=== PATIENT | male | born 1985 | race Caucasian/White ===

== ENCOUNTER 2021-12-19 09:35 | Emergency (ER) | payer OTHER, SELFPAY ==
[2021-12-19 10:14] VITALS: BP 115/68; PULSE 64; RESP 14; TEMP 36.1; O2SAT 99; BMI 21.7
--- NOTE | 2021-12-19 10:25 | CRLHL7_ITS ---
For Patients: As a result of the Cures Act, medical imaging exams and procedure reports are released immediately into your electronic medical record. You may view this report before your referring provider. If you have questions, please contact your health care provider. Indication: left arm injury, caught in machine Technique: Left forearm 2 views. Comparison: None. Findings: Bones: Alignment is normal. No fractures or bone lesions. Joint spaces: Unremarkable. Soft tissues: Unremarkable. Impression: Unremarkable left forearm. Dictated by Jose Armando Lora MD @ 12/19/2021 11:12:07 AM (Electronically Signed)
--- NOTE | 2021-12-19 11:00 | ED.GENADULT ---
HPI - General Adult General Chief complaint: Extremity Pain/Injury, Upper Stated complaint: WC/LEFT ARM CAUGHT IN MACHINERY Time Seen by Provider: 12/19/21 10:54 History of Present Illness HPI narrative: This 36-year-old male comes in with an injury to his left forearm. He was at work and got his arm caught into a machine. He has some superficial abrasions in the proximal forearm and has a laceration on the dorsal aspect of his left wrist. He is deaf and needs sign language interpretation for this encounter. He does not report any other injury. His tetanus is up-to-date. Related Data Home Medications Medication Instructions Recorded Confirmed multivitamin 1 tab PO DAILY 12/19/21 12/19/21 Allergies Allergy/AdvReac Type Severity Reaction Status Date / Time metals Allergy Mild Rash Uncoded 12/19/21 10:13 Review of Systems Status of ROS: Reports: 10 or more systems reviewed and unremarkable except as noted in History and below Narrative: Constitutional: No fevers, no weight gain or loss. Eyes: No discharge. No vision changes. HENT: No congestion, no sore throat, no ear pain. Cardiovascular: No chest pain, no palpitations. Respiratory: No shortness of breath, no wheezes, no cough. Gastrointestinal: No abdominal pain, no vomiting, no diarrhea. Genitourinary: No dysuria, no hematuria. Musculoskeletal: Normal range of motion. Injury to the left forearm as described above. Skin: No rashes, no pruritis. Neurological: No dizziness, weakness, sensory change, speech change. Endo/Heme/Allergies: No bruising or bleeding. No polydipsia. Pysch: no suicidality, no anxiety, no insomnia. All other systems reviewed and are negative. Const: Denies: fever or chills Eyes: Denies: change in vision Integ/Breast: Denies: rash or itching Neuro: Denies: headache, weakness in extremities or dizziness Psych: Denies: anxiety Endo: Denies: excessive urination or excessive thirst Alo/Lymph: Denies: easy bruising or easy bleeding Allergy/Immuno: Denies: hives Exam Narrative: Exam Narrative: Constitutional: Well-developed, well-nourished, no acute distress. HEENT: Normocephalic, atraumatic. Neck: Normal range of motion. Nontender. Supple. Heart: Intact distal pulses. Lungs: No chest discomfort. No wheezes, rhonchi, or rales. Abdomen: Nontender. Back: Normal range of motion. Extremities: Normal range of motion. 2 cm laceration on the dorsal aspect of the left wrist. There is some superficial bruising and erythema in the proximal left forearm. Skin: Intact. No rash. Warm. No erythema or pallor. Neurologic: No altered sensation. No weakness. Alert and oriented. Psychiatric: No suicidality. No anxiety or depression. No insomnia. Nursing notes and vitals signs are reviewed. Const: Vital Signs, click to edit/add: Vital Signs - 24 hr 12/19/21 10:14 Temperature 97.0 F L Pulse Rate [Right Pulse Oximeter] 64 Respiratory Rate 14 Blood Pressure [Ri ght Upper Arm] 115/68 Pulse Oximetry 99 Course Vital Signs Vital signs: Initial Vital Signs Temperature 97.0 F L 12/19/21 10:14 Temperature Source Temporal Artery Scan 12/19/21 10:14 Pulse Rate 64 12/19/21 10:14 Respiratory Rate 14 12/19/21 10:14 Blood Pressure 115/68 12/19/21 10:14 Blood Pressure Mean 83 12/19/21 10:14 Blood Pressure Position Sitting 12/19/21 10:14 Pulse Oximetry 99 12/19/21 10:14 Oxygen Delivery Method 12/19/21 10:14 Vital Signs Temperature 97.0 F L 12/19/21 10:14 Pulse Rate 64 12/19/21 10:14 Respiratory Rate 14 12/19/21 10:14 Blood Pressure 115/68 12/19/21 10:14 Pulse Oximetry 99 12/19/21 10:14 Temperature 97.0 F L 12/19/21 10:14 Pulse Rate 64 12/19/21 10:14 Respiratory Rate 14 12/19/21 10:14 Blood Pressure 115/68 12/19/21 10:14 Pulse Oximetry 99 12/19/21 10:14 Medical Decision Making MDM Narrative Medical decision making narrative: This patient comes in with an injury to his left arm while at work. 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 He has a 2 cm linear laceration on the dorsal aspect of his left wrist. I discussed repair options and the patient elected to have Dermabond applied. After cleansing the wound this was applied with excellent results. Instructions were given regarding wound care. Two Band-Aids were applied and then an Sav wrap. He is okay to return to work. Imaging Data x-ray forearm: My impression: No sign of fracture or dislocation. Radiologist's impression: No acute injury. Discharge Plan Discharge Clinical Impression: Arm laceration Patient Disposition: Home, Self-Care Condition: Stable Instructions: Laceration (ED) Additional Instructions: Left arm laceration. Keep wound clean and dry. Activity as tolerated. Follow up with MD or return if worsening. Prescriptions: No Action multivitamin Tablet 1 tab PO DAILY 0RF Follow Up/Referrals: Jose Armando Cervantes MD [Primary Care Provider] - Stand Alone Forms: [employer] Info Instructions
== END 2021-12-19 12:12 | disposition home or self-care (01) ==
PROVIDERS: Emergency Provider Emergency Medicine Emergency Medical Services; PCP Family Medicine
DX: S61.512A Laceration without foreign body of left wrist, initial encounter (principal); Y93.89 Activity, other specified; Y92.63 Factory as the place of occurrence of the external cause; Y99.0 Civilian activity done for income or pay
CPT/HCPCS: 12001; 73090; 99282; 99283

== ENCOUNTER 2022-12-13 10:02 | Outpatient (CLI) | payer BC, SELFPAY | END 2022-12-13 10:03 | disposition home or self-care (01) | PROVIDERS: PCP Family Medicine; Visit Provider Family Medicine | DX: Z00.00 Encounter for general adult medical examination without abnormal findings (principal); B36.0 Pityriasis versicolor; Z13.6 Encounter for screening for cardiovascular disorders | CPT/HCPCS: 80048; 80061; 84460 ==

== ENCOUNTER 2025-03-29 09:50 | Outpatient (CLI) | payer BC, SELFPAY | END 2025-03-29 09:51 | disposition home or self-care (01) | PROVIDERS: PCP Family Medicine; Visit Provider Family Medicine | DX: Z00.00 Encounter for general adult medical examination without abnormal findings (principal) | CPT/HCPCS: 80048; 80061 ==